=== PATIENT | female | born 1975 | race Two or more races ===

== ENCOUNTER 2024-02-14 06:00 | Day surgery (SDC) | payer OTHER ==
[2024-02-13 15:49] VITALS: BP 121/81
[2024-02-13 17:51] LABS: INR 1.06; PARTIAL THROMBOPLASTIN TIME 25.9 SECONDS (22.0-34.0); PROTHROMBIN TIME 11.5 SECONDS (9.0-11.5)
[2024-02-14] MEDS ORDERED: ENOXAPARIN SODIUM 40 MG/0.4 ML SYRINGE SUBCUTANEO ONE (11:45)
[2024-02-14] MEDS ORDERED: EPINEPHRINE HCL/PF 1 MG/ML AMPUL IR ONE (11:45)
[2024-02-14] MEDS ORDERED: CEFAZOLIN SODIUM 1,000 MG VIAL IV ONE (11:45)
[2024-02-14] MEDS ORDERED: LIDOCAINE HCL 1% 20 ML VIAL IJ ONE (11:45)
[2024-02-14] MEDS ORDERED: POVIDONE-IODINE 118 ML BOTT TOP ONE (12:15)
== END 2024-02-14 21:00 | disposition home or self-care (01) ==
LOC: CIR.AMB 06:00
PROVIDERS: ATTEND Specialist
DX: N64.81 Ptosis of breast (principal); L98.7 Excessive and redundant skin and subcutaneous tissue